=== PATIENT | male | born 1945 | race Caucasian/White ===

== ENCOUNTER 2018-07-25 06:59 | Day surgery (SDC) | payer BC ==
[~2018-07-25 06:59] MED LIST: ACETAMINOPHEN 1,000 MG/100 ML BTL IV ONE
[2018-07-25] MEDS ORDERED: LIDOCAINE 2% MDV (20MG/ML) 20ML VIAL IV ONE (07:00)
[2018-07-25] MEDS ORDERED: BUPIVACAINE 0.25% W/EPI MPF 30ML VIAL IVP ONE (07:00)
[2018-07-25] MEDS ORDERED: MIDAZOLAM HCL 2MG/2ML VIAL IV ONE (07:00)
[2018-07-25] MEDS ORDERED: PROPOFOL 10 MG/ML VIAL IV ONE (07:00)
[2018-07-25] MEDS ORDERED: ONDANSETRON HCL IV 4 MG/2 ML VIAL IVP ONE (07:00)
[2018-07-25] MEDS ORDERED: DEXAMETHASONE 4 MG/ML 1ML VIAL IVP ONE (07:00)
[2018-07-25] MEDS ORDERED: SEVOFLURANE 250 ML INH ONE (07:00)
[2018-07-25] MEDS ORDERED: FENTANYL PF 100MCG/2ML VIAL IV ONE (07:00)
[2018-07-25 07:13] LABS: BASO % 0.5 % (0-6); EOS % 4.9 % (0-6); GRAN % 45.2 % (47-80); HEMATOCRIT 46.5 % (42.0-52.0); HEMOGLOBIN 15.4 gm/dl (14.0-18.0); LYMPH % 39.6 % (16-45); MEAN CELL VOLUME 94.9 fl (81-97); MEAN CORPUSCULAR HEMOGLOBIN 31.4 pg (27-33); MEAN CORPUSCULAR HGB CONC 33.1 g/dl (32-36); MEAN PLATELET VOLUME 9.5 fl (7.4-10.4); MONO % 9.8 % (0-9); PLATELET COUNT 213 K/uL (130-400); RED CELL DISTRIBUTION WIDTH 13.3 % (11.5-14.5); WHITE BLOOD COUNT W/O DIFF 6.1 K/uL (4.2-12.2)
[2018-07-25 07:28] LABS: BLOOD UREA NITROGEN 11 mg/dL (8-23); EST GLOMERULAR FILTRATION RATE > 60 mL/min; GLUCOSE,RANDOM 102 mg/dL (74-109)
--- NOTE | 2018-07-25 14:10 | Operative Note ---
DATE OF SURGERY: 07/25/2018 Surgeon: Dwayne Mobley DO PREOPERATIVE DIAGNOSES: 1. Torn medial meniscus of the left knee. 2. Osteoarthritis, left knee. POSTOPERATIVE DIAGNOSES: 1. Torn medial meniscus, left knee. 2. Synovitis, left knee. 3. Osteoarthritis, left knee. 4. Chondrocalcinosis, left knee. OPERATION: 1. Arthroscopic partial medial meniscectomy of the left knee. 2. Arthroscopic partial synovectomy left knee (2 compartments). 3. Arthroscopic chondroplasty medial femoral condyle, medial tibial plateau, patella, and trochlea left knee. DESCRIPTION OF PROCEDURE: This 72-year-old male was taken to the operating room and placed in the supine position on the operating room table. General anesthesia was induced. The left lower extremity was elevated, exsanguinated, and the tourniquet inflated to 300 mmHg. Arthroscopic knee lovett applied. Left knee prepped with Hibiclens and draped in the usual sterile fashion. An inferolateral portal was established for the 4 mm arthroscope. Initial evaluation of the joint demonstrated marked degenerative disease of the patellofemoral articular cartilage, a thickened medial mid patella plica was also present with synovitis present in the suprapatellar pouch and some of the fat pad as well. Through an inferomedial portal, debridement of the medial plica and partial synovectomy was performed. The patella demonstrated grade 4 changes in a small area in the center of the median ridge but the remainder was grade 3 with fibrillation and this was debrided. The center of the trochlea demonstrated severe grade 3 changes and more towards the medial side there was a grade 4 lesion which was quite large approximately 2.5 cm or so in greatest dimension. We then directed our attention to the medial compartment and grade 4 lesion of the medial tibial plateau under the medial meniscus was present. This was quite a small lesion, however, being less than 0.5 cm. However, the posterior aspect of the medial femoral condyle demonstrated very severe full-thickness defect involving the entire articular cartilage of the posterior aspect of the medial femoral condyle. Disruption of the medial meniscus was also present and a tear which was complex demonstrating a radial component as well as a horizontal cleavage tear. We resected back to the apex of the tear at about the 12-o'clock position, which was near the meniscosynovial junction, and then tapered in each direction to leave a stable rim of meniscus. We debrided the articular cartilage which was loose and fragmented on the medial femoral condyle. The intracondylar notch appeared to be normal. The lateral compartment was examined and what we found was a chondrocalcinosis present underneath the lateral meniscus, which was debrided, but the meniscus itself was not torn. Other patchy areas of chondrocalcinosis were also evident and we debrided that as much as possible. The wound was then irrigated and reexamined. No additional findings were present. The joint was suctioned and the instruments were removed. The portals infiltrated with 0.25% Marcaine with epinephrine. Sterile dressings applied. Tourniquet and knee lovett released and the patient taken to the recovery room in satisfactory condition. GROSS PATHOLOGY: Severe grade 4 osteoarthritis of the medial femoral condyle, trochlea, and medial tibial plateau was present as described. Synovitis also present with a medial mid patella plica, and complex tear of the medial meniscus was present as described. CC: BLADIMIR Rodriguez
== END 2018-07-25 10:20 | disposition home or self-care (01) ==
LOC: SUR 06:59
PROVIDERS: ATTEND Orthopaedic Surgery
DX: S83.232A Complex tear of medial meniscus, current injury, left knee, initial encounter (principal); M65.9 Synovitis and tenosynovitis, unspecified; M17.12 Unilateral primary osteoarthritis, left knee; M11.262 Other chondrocalcinosis, left knee; E78.00 Pure hypercholesterolemia, unspecified
CPT/HCPCS: 29881; 29876; 01400; 85025; 80048; J2405; J3010